=== PATIENT | female | born 1965 | race Caucasian/White ===

== ENCOUNTER 2016-07-12 13:23 | Day surgery (SDC) | payer OTHER ==
[~2016-07-12] VITALS: Ht 165.1 cm; Wt 76.9 kg
[2016-07-12 13:57] VITALS: Ht 165.1 cm; Wt 76.9 kg
[2016-07-12] MEDS ORDERED: MEPERIDINE 50 MG INJ ONE (14:58)
[2016-07-12] MEDS ORDERED: FENTAnyl 50 MCG/ML VIAL ONE (14:58)
[2016-07-12] MEDS ORDERED: MIDAZOLAM 1 MG/ML 2 ML INJ ONE ×2 (14:58)
[2016-07-12 15:30] VITALS: BP 102/66; PULSE 61; RESP 1
--- NOTE | 2016-07-13 05:00 | GILP ---
DATE OF PROCEDURE: 07/12/2016 PREOPERATIVE DIAGNOSIS: Abdominal pain, nausea with acid reflux symptoms. PROCEDURE DONE: Esophagogastroduodenoscopy and biopsy random in the stomach. POSTOPERATIVE DIAGNOSIS: Normal esophagus except for a small sliding hernia of about 2 to 3 cm, sma ll. Stomach, normal. Duodenum, normal. Random biopsy done in the stomach. DESCRIPTION OF PROCEDURE: The patient was put in left lateral decubitus after obtaining informed co nsent. The patient was sedated with 3 mg IV Versed and 75 mcg of fentanyl. Advanced the Olympus vi jade upper endoscope into the esophagus, stomach and duodenum very carefully. The esophagus in its e ntire length is normal. Small sliding hiatus hernia noted about 2 to 3 cm and retroflexion was also done. Examination of the stomach by retroflexion in the fundus, a hiatus hernia was noted, otherwi se fundus, body and antrum normal, but random biopsy done to rule out any H. pylori. The pylorus was easily traversed and duodenal bulb first and second part of the duodenum normal. Sc ope was withdrawn. Patient had no complication. Plan will be to proceed with colonoscopy as planne d. If any H. pylori, we will treat the patient, otherwise she will follow up in my office in 6 to 8 weeks. Dictated By: MARIAN STAPLETON Conf#: [id number] DID#: [id number]
--- NOTE | 2016-07-13 05:09 | GILP ---
DATE OF PROCEDURE: 07/12/2016 PREOPERATIVE DIAGNOSIS: Abdominal pain, nausea. PROCEDURE DONE: Colonoscopy up to cecum. POSTOPERATIVE DIAGNOSIS: Moderate to severe diverticulosis in the sigmoid and descending colon. Fix ed sigmoid colon. Otherwise normal. DESCRIPTION OF PROCEDURE: The patient was put in left lateral decubitus after obtaining informed co nsent after EGD, monitored on oximetry, EKG, and blood pressure. She was given 1 mg more of IV Vers ed and 25 mcg of fentanyl and 25 mg of Demerol. Very carefully advanced a pediatric Olympus video c olonoscope very carefully into the rectum and advanced all the way through the sigmoid colon. Moder ate to severe diverticulosis with fixed sigmoid colon noted, but slowly by water infusing, I entered the descending colon. A few diverticula noted there. The transverse colon was easily entered after that. An examination advanced the scope all the way to cecum. Ileocecal valve and appendiceal openi ng identified. Cecum, ascending colon, transverse colon essentially normal except for diverticulosi s in the descending colon and sigmoid colon and fixed sigmoid colon is normal mucosa. Postop, patie nt had no complications. Rectum was also examined by retroflexion. It was unremarkable. Dear Dr. Adali Gonzalez: I would recommend a high fiber diet, increase fluid intake. Advised her t o take Probiotic for her symptoms. Follow up in 8 weeks if necessary. Dictated By: MARIAN STAPLETON Conf#: [id number] DID#: [id number] CC: Modesto Gusman; Elan Gonzalez;*End*
== END 2016-07-12 15:49 | disposition home or self-care (01) ==
LOC: GIL 13:23
PROVIDERS: ATTEND Internal Medicine
DX: Z12.11 Encounter for screening for malignant neoplasm of colon (principal); K44.9 Diaphragmatic hernia without obstruction or gangrene; K57.90 Diverticulosis of intestine, part unspecified, without perforation or abscess without bleeding
CPT/HCPCS: 43239; 45378; 88305; 88312; J2175; J2250; J3010; Z7610

== ENCOUNTER 2017-08-03 05:39 | Day surgery (SDC) | END 2017-08-03 08:10 | disposition home or self-care (01) ==

== ENCOUNTER 2017-08-22 05:41 | Day surgery (SDC) | END 2017-08-22 12:30 | disposition home or self-care (01) ==